=== PATIENT | male | born 1985 | race Caucasian/White ===

== ENCOUNTER 2018-03-07 23:24 | Emergency (ER) | payer SELFPAY ==
[2018-03-07] MEDS ORDERED: Bupivacaine 0.5% 10 ML VIAL ONE (23:46)
[2018-03-07] MEDS ORDERED: Penicillin V Potassium 250 MG TAB ONE (23:53)
[2018-03-07] MEDS ORDERED: HYDROcodone/Acetaminophen 5/325 mg Tablet ONE (23:53)
== END 2018-03-08 00:05 | disposition home or self-care (01) ==
LOC: NAV ERS 23:24
DX: K08.89 Other specified disorders of teeth and supporting structures (principal); J45.909 Unspecified asthma, uncomplicated; F17.210 Nicotine dependence, cigarettes, uncomplicated
CPT/HCPCS: 64400; J3490

== ENCOUNTER 2018-03-18 18:13 | Emergency (ER) | payer SELFPAY ==
[2018-03-18] MEDS ORDERED: Ketorolac Tromethamine 60 MG/2 ML VIAL ONE (18:40)
== END 2018-03-18 19:01 | disposition home or self-care (01) ==
LOC: NAV ERS 18:13
DX: K02.9 Dental caries, unspecified (principal); J45.909 Unspecified asthma, uncomplicated; F17.210 Nicotine dependence, cigarettes, uncomplicated
CPT/HCPCS: 96372; J1885

== ENCOUNTER 2018-07-02 09:57 | Emergency (ER) | payer SELFPAY ==
[2018-07-02] MEDS ORDERED: predniSONE 20 MG TAB ONE (10:06)
== END 2018-07-02 10:23 | disposition home or self-care (01) ==
LOC: NAV ERS 09:57
DX: J45.901 Unspecified asthma with (acute) exacerbation (principal)
CPT/HCPCS: J7620